=== PATIENT | female | born 1985 | race Caucasian/White ===

== ENCOUNTER 2017-05-20 11:13 | Emergency (ER) | payer SELFPAY ==
[2017-05-20] MEDS ORDERED: Albuterol Nebulizer 2.5mg/3mL HHN ONE ×2 (11:52→12:05)
--- NOTE | 2017-05-20 11:59 | ED Physician Chart ---
ED Chief Complaint/HPI - Patient Information Date Seen:: 05/20/17 Time Seen:: 11:45 Chief Complaint:: cough History of Present Illness:: Patient said cough and wheezing since yesterday. The sputum has been bright green and yellow. She coughed up a nickel-sized bloody sputum this morning. No fever. No vomiting or diarrhea. Did not receive influenza vaccination this season. Allergies:: Allergies Allergy/AdvReac Type Severity Reaction Status Date / Time No Known Allergies Allergy Verified 05/20/17 11:21 Vitals:: Vital Signs - 8 hr 05/20/17 11:22 Temp 99.2 F HR 108 RR 23 BP 163/95 O2 Sat % 96 Historian:: Patient Review:: Nurse's Note Reviewed ED Review of Systems - Review of Systems General/Constitutional: No fever, No chills Skin: No skin lesions Head: No headache Eyes: No loss of vision ENT: No earache Neck: No neck pain Cardio Vascular: No chest pain Pulmonary: Cough, Sputum GI: No nausea, No vomiting, No diarrhea G/U: No dysuria Musculoskeletal: No bone or joint pain Endocrine: No polyuria Psychiatric: No prior psych history, No depression, No anxiety Hematopoietic: No bruising Allergic/Immuno: No urticaria Neurological: No syncope, No focal symptoms ED Past Medical History - Past Medical History Past Medical History: Asthma/COPD Family History: Diabetes Melitus, HTN, Cancer, Other (pancreatic cancer; hyperlipidemia) Social History: Non Smoker, No Alcohol Surgical History: Cholecystectomy Psychiatricy History: None Medication: Reviewed ED Labs/Radiology/EKG Results - Lab Results Results: Influenza A and B- ED Septic Shock - . Is Septic Shock (SBP<90, OR Lactate>4 mmol\L) present?: No - <6hrs of presentation: Vital Signs: Vital Signs - 8 hr 05/20/17 11:22 Temp 99.2 F HR 108 RR 23 BP 163/95 O2 Sat % 96 ED Reassessment (Disposition) - Reassessment Reassessment Condition:: Unchanged - Diagnosis Diagnosis:: Acute viral syndrome - Aftercare/Follow up Instructions Aftercare/Follow-Up Instructions:: Refer to Discharge Instructions Medication Prescribed:: Prescription for Proventil metered-dose inhaler to take 2 puffs every 4 hours as necessary for cough or shortness of breath - Patient Disposition Discharge/Transfer:: Home Condition at Disposition:: Stable, Unchanged
[2017-05-20 13:12] LABS: INF A SCREEN NEG FOR INF A; INF B SCREEN NEG FOR INF B
== END 2017-05-20 14:15 | disposition home or self-care (01) ==
LOC: ER 11:13
DX: B34.9 Viral infection, unspecified (principal); J44.9 Chronic obstructive pulmonary disease, unspecified; J45.909 Unspecified asthma, uncomplicated
CPT/HCPCS: 87804-TC; 94640; J7613; Z7502